=== PATIENT | male | born 1965 ===

== ENCOUNTER 2018-11-28 11:08 | Outpatient (CLI) | payer OTHER | END 2018-11-28 17:00 | disposition home or self-care (01) | LOC: SONOGRAMA 11:08 → MAMO-SONO 13:15 → SONOGRAMA 17:00 | DX: I86.1 Scrotal varices (principal) ==

== ENCOUNTER 2019-07-24 05:05 | Day surgery (SDC) | payer OTHER | END 2019-07-24 14:35 | disposition home or self-care (01) | LOC: CIR.AMB 05:05 | DX: K40.91 Unilateral inguinal hernia, without obstruction or gangrene, recurrent (principal) ==